=== PATIENT | male | born 1980 | race African-American/Black ===

== ENCOUNTER 2022-12-27 12:53 | Emergency (ER) | payer MEDICAID, OTHER ==
[~2022-12-27] VITALS: Ht 175.3 cm; Wt 72.0 kg
[2022-12-27 14:47] VITALS: BP 121/76
[2022-12-27] MEDS ORDERED: IBUPROFEN 800 MG TAB PO ONE (15:30)
[2022-12-27] MEDS ORDERED: IBUP800T27 PO (15:56)
== END 2022-12-27 16:14 | disposition home or self-care (01) ==
LOC: ER 12:53
DX: S82.51XA Displaced fracture of medial malleolus of right tibia, initial encounter for closed fracture (principal); S63.501A Unspecified sprain of right wrist, initial encounter; X58.XXXA Exposure to other specified factors, initial encounter; Y93.89 Activity, other specified; Y92.89 Other specified places as the place of occurrence of the external cause; Y99.8 Other external cause status
CPT/HCPCS: 73130; 73610

== ENCOUNTER 2023-01-28 13:33 | Emergency (ER) | payer OTHER ==
[~2023-01-28] VITALS: Ht 175.3 cm; Wt 75.6 kg
[~2023-01-28 13:33] MED LIST: IBUP800T27 PO
[2023-01-28 16:12] VITALS: BP 116/69
[2023-01-28] MEDS ORDERED: IBUP800T26 PO (17:33)
== END 2023-01-28 17:33 | disposition home or self-care (01) ==
LOC: ER 13:33
DX: M77.51 Other enthesopathy of right foot and ankle (principal); Z79.1 Long term (current) use of non-steroidal anti-inflammatories (NSAID)
CPT/HCPCS: 73610

== ENCOUNTER 2025-01-24 17:58 | Emergency (ER) | payer MEDICAID ==
[~2025-01-24 17:58] MED LIST changes: +IBUP-1455 PO; +IBUP-1456 PO; -IBUP800T27 PO
== END 2025-01-24 18:29 | disposition left against medical advice (07) ==
LOC: ER 17:58
DX: T14.8XXA Other injury of unspecified body region, initial encounter (principal); Z53.21 Procedure and treatment not carried out due to patient leaving prior to being seen by health care provider; X58.XXXA Exposure to other specified factors, initial encounter; Y93.89 Activity, other specified; Y92.89 Other specified places as the place of occurrence of the external cause; Y99.8 Other external cause status

== ENCOUNTER 2025-01-24 18:42 | Emergency (ER) | payer MEDICAID, OTHER | END 2025-01-24 20:55 | disposition left against medical advice (07) | LOC: ER 18:42 | DX: T14.8XXA Other injury of unspecified body region, initial encounter (principal); Z53.21 Procedure and treatment not carried out due to patient leaving prior to being seen by health care provider; X58.XXXA Exposure to other specified factors, initial encounter; Y93.89 Activity, other specified; Y92.89 Other specified places as the place of occurrence of the external cause; Y99.8 Other external cause status ==